=== PATIENT | female | born 1985 ===

== ENCOUNTER 2024-07-31 00:54 | Outpatient (CLI) | payer BC, SELFPAY ==
[2024-07-31 09:44] LABS: Abs Immature Grans 0.02 10^3/uL (0.0-0.06); Absolute Basophil Count 0.06 10^3/uL (0.0-0.2); Absolute Eosinophil Count 0.32 10^3/uL (0.0-0.7); Absolute Lymphocyte Count 2.56 10^3/uL (1.2-3.4); Absolute Monocyte Count 0.53 10^3/uL (0.1-0.8); Absolute Neutrophil Count 4.54 10^3/uL (1.2-6.7); Basophils % 0.7 %; Immature Grans % 0.2 %; Lymphocytes % 31.9 %; MCH 28.5 pg (27.0-33.0); MCHC 33.3 % (32.0-36.0); MCV 86 fL (80-95); MPV 9.2 fL (8.0-11.0); Monocytes % 6.6 %; Neutrophils % 56.6 %; Platelet Count 372 10^3/uL (130-400); RBC 5.26 10^6/uL (3.93-5.22); RDW 12.7 % (11.7-14.6); RDW-SD 39.9 fL; WBC 8.03 10^3/uL (4.4-10.8)
[2024-07-31 10:30] LABS: ALT 29 U/L (14-59); AST 12 U/L (15-37); Albumin 3.3 g/dL (3.4-5.0); Alkaline Phosphatase 88 U/L (46-116); Bilirubin, Direct 0.1 mg/dL (0.0-0.2); Bilirubin, Total 0.4 mg/dL (0.2-1.0); C-Reactive Protein 1.99 mg/dL (<or=0.5)
== END 2024-07-31 00:55 | disposition home or self-care (01) ==
PROVIDERS: Visit Provider Internal Medicine Gastroenterology
DX: K50.012 Crohn's disease of small intestine with intestinal obstruction (principal)
CPT/HCPCS: 36415; 80076; 85025; 86140